=== PATIENT | female | born 1945 | race Caucasian/White ===

== ENCOUNTER 2024-01-31 09:03 | Emergency (ER) | payer MEDICARE ==
[2024-01-31 09:54] VITALS: TEMP 98.6
[2024-01-31] MEDS: IBUPROFEN 800 MG TAB PO STA (09:55)
[2024-01-31] MEDS: ACETAMINOPHEN TAB 500 MG TAB PO STA (09:55)
--- NOTE | 2024-01-31 10:29 | ED ---
General Adult HPI - General Chief complaint: Extremity Problem,Nontraumatic Stated complaint: Pain in R leg Time Seen by Provider: 01/31/24 09:29 Source: patient, RN notes reviewed, old records reviewed Mode of arrival: wheelchair Limitations: no limitations - History of Present Illness Initial comments: Patient is a 79-year-old female who presents emergency department complaining of right knee pain. Recently completed treatment for UTI. Does not believe that is linked to her right leg pain. States that for 1 week she has been having wo rsening pain primarily starting in the right knee on the outside aspect with radiation down into her calf. Denies any obvious injuries. Worse with walking. Has not seen her PCP yet for the right knee pain. Denies any history of blood clots. Denies shortness of breath. Is not on blood thinners. Denies any numbness or swelling in the right lower extremity. Presents for further evaluation at this time. - Related Data Home Medications Medication Instructions Recorded Confirmed Felodipine [Plendil] 5 mg PO DAILY 01/31/24 01/31/24 Fosinopril Sodium [Monopril] 40 mg PO DAILY 01/31/24 01/31/24 Glucosamine/Chondr Wall A Sod [Osteo 1 tab PO DAILY 01/31/24 01/31/24 Bi-Flex Caplet] Potassium Chloride ER [K-Dur 10] 10 meq PO DAILY 01/31/24 01/31/24 Pravastatin Sodium [Pravachol] 40 mg PO DAILY 01/31/24 01/31/24 Allergies Allergy/AdvReac Type Severity Reaction Status Date / Time No Known Allergies Allergy Verified 01/31/24 10:26 Review of Systems ROS Statement: Those systems with pertinent positive or pertinent negative responses have been documented in the HPI. Review of Systems: CONST: Denies fever EYES: Denies blurry vision ENT: Denies nasal congestion C/V: Denies Chest pain RESP: Denies shortness of breath GI: Denies abdominal pain : Denies dysuria SKIN: Denies rash. MSK: Endorses right knee pain NEURO: Denies headache ROS Other: All systems not noted in ROS Statement are negative. Past Medical History Past Medical History: Hypertension History of Any Multi-Drug Resistant Organisms: None Reported Past Surgical History: Cholecystectomy, Hysterectomy Past Psychological History: No Psychological Hx Reported Smoking Status: Never smoker Past Alcohol Use History: None Reported Past Drug Use History: None Reported General Exam - General Exam Comments Initial Comments: General: Appears in mild distress secondary to knee pain. HEAD: Normal with no signs of head trauma. EYES: EOMI. ENT: Hearing grossly intact. RESPIRATORY: No respiratory distress. C/V: Regular rate and rhythm. ABD: Abdomen is nondistended. EXT: No obvious deformity of the right knee. Does appear to be arthritic in nature. Tenderness palpation over the lateral aspect of the knee. Pain with varus and valgus stress. Negative anterior and posterior drawer testing. No significant edema. No significant tenderness on palpation of the calf. Neurova scular intact distal to the knee. Relatively normal range of motion of the knee as well. SKIN: No rashes or lesions observed on exposed skin. NEURO: Alert and oriented. Limitations: no limitations Course Vital Signs 01/31/24 01/31/24 01/31/24 09:10 09:14 12:05 Temperature 98.6 F Pulse Rate 121 H 100 75 Respiratory 16 20 16 Rate Blood Pressure 153/76 140/70 O2 Sat by Pulse 96 98 98 Oximetry Medical Decision Making - Medical Decision Making Was pt. sent in by a medical professional or institution (, PA, CONFERENCE INTERPRETER, urgent care, hospital, or [facility]...) When possible be specific @ -No Did you speak to anyone other than the patient for history (EMS, parent, family, police, friend...)? What history was obtained from this source @ -No Did you review nursing and triage notes (agree or disagree)? Why? @ -I reviewed and agree with nursing and triage notes Were old charts reviewed (outside hosp., previous admission, EMS record, old EKG, old radiological studies, urgent care reports/EKG's, [facility] records)? Report findings @ -No old charts were reviewed Differential Diagnosis (chest pain, altered mental status, abdominal pain women, abdominal pain men, vaginal bleeding, weakness, fever, dyspnea, syncope, headache, dizziness, GI bleed, back pain, seizure, CVA, palpatations, mental health, musculoskeletal)? @ -Differential Musculoskeletal Muscular strain, contusion, ligament sprain, fracture, arthritis, septic arthritis, bursitis, cellulitis, muscle spasm, nerve compression, DVT, arterial occlusion, herpes zoster, electrolyte abnormality, tumor.... This is not meant to be in all inclusive list EKG interpreted by me (3pts min.). @ -None done X-rays interpreted by me (1pt min.). @ -Knee x-ray shows no obvious acute traumatic injury. Possible mild degenerative changes suggestive of arthritis. CT interpreted by me (1pt min.). @ -None done U/S interpreted by me (1pt. min.). @ -Ultrasound of the right lower extremity negative for DVT or other acute process. What testing was considered but not performed or refused? (CT, X-rays, U/S, labs)? Why? @ -None What meds were considered but not given or refused? Why? @ -None Did you discuss the management of the patient with other professionals (professionals i.e. , PA, CONFERENCE INTERPRETER, lab, RT, psych nurse, social media specialist, shiftman, teacher, production officer, social work case manager)? Give summary @ -No Was smoking cessation discussed for >3mins.? @ -No Was critical care preformed (if so, how long)? @ -No Were there social determinants of health that impacted care today? How? (Homelessness, low income, unemployed, alcoholism, drug addiction, transportation, low edu. Level, literacy, decrease access to med. care, nursing home, rehab)? @ -No Was there de-escalation of care discussed even if they declined (Discuss DNR or withdrawal of care, Hospice)? DNR status @ -No What co-morbidities impacted this encounter? (DM, HTN, Smoking, COPD, CAD, Cancer, CVA, ARF, Chemo, Hep., AIDS, mental health diagnosis, sleep apnea, morbid obesity)? @ -None Was patient admitted / discharged? Hospital course, mention meds given and route, prescriptions, significant lab abnormalities, going to OR and other pertinent info. @ -Patient presents with what appears to be musculoskeletal pain of the right knee. Possible soft tissue injury versus likely arthritis but I did discuss with the patient we will screen her for DVT in that leg with the calf pain with ultrasound as well as obtain an x-ray of the right knee. Patient was in agreement this plan. She will be given Tylenol Motrin for pain relief. Vital signs within acceptable limits. Patient's imaging returned negative for any obvious acute process. I updated the patient. We will provide an Himanshu bandage for wrapping the knee. Recommended follow-up with PCP if pain persist. She may require further imaging such as a MRI. She expressed understanding. I instructed the patient to follow up with their PCP in the next 1-3 days. I explained that the patient should return to the emergency department if they e xperience any worsening symptoms. Strict return precautions were discussed with the patient. The patient expressed understanding of these instructions. I answered all questions that the patient had. The patient was discharged home in [good] condition with their prescriptions and follow up information. Undiagnosed new problem with uncertain prognosis? @ -No Drug Therapy requiring intensive monitoring for toxicity (Heparin, Nitro, Insulin, Cardizem)? @ -No Were any procedures done? @ -No Diagnosis/symptom? @ -Right knee sprain Acute, or Chronic, or Acute on Chronic? @ -Acute Uncomplicated (without systemic symptoms) or Complicated (systemic symptoms)? @ -Uncomplicated Side effects of treatment? @ -None Exacerbation, Progression, or Severe Exacerbation] @ -No Poses a threat to life or bodily function? @ -No Disposition Clinical Impression: Knee sprain Disposition: ADMITTED IP TO THIS [facility] Condition: Stable Is patient prescribed a controlled substance at d/c from ED?: No Referrals: Vishal Zuñiga MD [Primary Care Provider] - 1-2 days Time of Disposition: 11:50
--- NOTE | 2024-01-31 10:51 | XR ---
EXAMINATION TYPE: XR knee complete RT DATE OF EXAM: 01/31/2024 CLINICAL HISTORY: pain TECHNIQUE: Three views of the right knee are obtained. COMPARISON: None. FINDINGS: There is no acute fracture/dislocation. The tri-compartment joint spaces appear within no rmal limits. The overlying soft tissue appears unremarkable. Small suprapatellar joint effusion. IMPRESSION: There is no acute fracture or dislocation.ICD 10 NO FRACTURE, INITIAL EVALUATION
[2024-01-31 10:52] VITALS: BP 140/70
--- NOTE | 2024-01-31 11:11 | US ---
EXAMINATION TYPE: US venous doppler duplex LE RT DATE OF EXAM: 01/31/2024 10:58 AM COMPARISON: NONE CLINICAL INDICATION: Female, 79 years old with history of right knee/calf pain. Eval DVT; No hx of DV T. Patient does not take blood thinners. Pain x 1 week. SIDE PERFORMED: Right TECHNIQUE: The lower extremity deep venous system is examined utilizing real time linear array sonog nolan with graded compression, doppler sonography and color-flow sonography. VESSELS IMAGED: Common Femoral Vein Deep Femoral Vein Greater Saphenous Vein * Femoral Vein Popliteal Vein Small Saphenous Vein * Proximal Calf Veins Posterior tibial veins (* superficial vessels) Right Leg: No evidence of DVT. Charge Machine Operator notes: Scanned right anterior leg at patient's area of pain/concern- no abnormalities see n at this time. IMPRESSION: No evidence for DVT within the right lower extremity. Additional targeted scanning along the patient' s area of concern, anteriorly. No discrete sonographic abnormality of the superficial tissues here.
[2024-01-31 12:44] VITALS: PULSE 75; RESP 16
== END 2024-01-31 12:05 | disposition other institution (70) ==
LOC: EC 09:03
DX: S83.91XA Sprain of unspecified site of right knee, initial encounter (principal); X58.XXXA Exposure to other specified factors, initial encounter
CPT/HCPCS: 99285

== ENCOUNTER → 2024-07-01 | Outpatient (CLI) | payer MEDICARE ==
--- NOTE | 2024-07-01 11:59 | MR ---
EXAMINATION TYPE: MR knee RT wo con DATE OF EXAM: 07/01/2024 COMPARISON: 06/24/2024 HISTORY: Rt knee pain and swelling x6 months TECHNIQUE: Multiplanar, multisequence imaging of the knee is performed without IV contrast. FINDINGS: MEDIAL MENISCUS: Complex signal seen involving the body and posterior horn medial meniscus compatible with tear. Pseudo extrusion of the medial meniscus. LATERAL MENISCUS: Grade 3 signal posterior horn compatible with tear. CRUCIATE LIGAMENTS: The anterior and posterior cruciate ligaments are intact and unremarkable. COLLATERAL LIGAMENTS: The medial collateral ligament and lateral collateral ligament complex are inta ct no evidence of tear. Increased fluid surrounding the MCL can be associated with a grade 1 MCL stra in EXTENSOR MECHANISM: Visualized quadriceps and patellar tendons are intact. EFFUSION: Small moderate suprapatellar bursal fluid collection. POPLITEAL CYST: No popliteal/edouard cyst. TRICOMPARTMENT SPACES: There is moderate narrowing of the medial compartment and patellofemoral aime rtments of the joint space. There is grade II chondromalacia medial femoral articular cartilage. Nela inal spurring. No erosive changes. No definite free fragment. There is a tiny 5 mm cyst posterior to the knee joint which could represent a tiny ganglion cyst. The re is a subcentimeter popliteal fossa cyst.. BONE MARROW SIGNAL: Minimal marrow changes in the proximal tibia and distal fibula likely reactive. IMPRESSION: 1. Moderate osteoarthritis with marginal spurring but no erosive changes. There is a localized grade II chondromalacia of the medial femoral articular cartilage. 2. Complex tear posterior horn and body medial meniscus. 3. Degenerative tear posterior horn lateral meniscus. [facility], , 07/01/2024 11:57 AM
== END | disposition home or self-care (01) ==
LOC: RADMRIMAIN 11:05
PROVIDERS: ATTEND Orthopaedic Surgery
DX: M25.561 Pain in right knee